=== PATIENT | female | born 1980 | race Hispanic/Latino ===

== ENCOUNTER 2018-12-11 02:04 | Emergency (ER) | payer OTHER ==
--- NOTE | 2018-12-11 02:48 | ED PDOC ---
HPI: CCC, URI, Sore Throat Time Seen by Provider: 12/11/18 02:46 Chief Complaint (Nursing): ENT Problem Chief Complaint (Provider): left ear pain History Per: Patient (38 y/o female here with left ear pain intermittent sharp gradually increasing in frequency today. Denies any fever/chills. No rash noted.) Past Medical History Reviewed: Historical Data, Nursing Documentation, Vital Signs Vital Signs: Last Vital Signs Temp 98.3 F 12/11/18 02:24 Pulse 83 12/11/18 02:24 Resp 16 12/11/18 02:24 BP 107/73 12/11/18 02:24 Pulse Ox 98 12/11/18 02:24 - Family History Family History: States: No Known Family Hx - Home Medications Home Medications: Ambulatory Orders Medication Instructions Recorded Valacyclovir HCl [Valtrex] 1,000 mg PO TID #21 tablet 12/11/18 oxyCODONE/Acetaminophen [Percocet 1 ea PO Q6 PRN #10 tab 12/11/18 5/325 mg Tab] predniSONE [Prednisone] 3 tab PO DAILY #15 tab 12/11/18 - Allergies Allergies/Adverse Reactions: Allergies Allergy/AdvReac Type Severity Reaction Status Date / Time No Known Allergies Allergy Verified 12/11/18 02:25 Review of Systems ROS Statement: Except As Marked, All Systems Reviewed And Found Negative Physical Exam - Reviewed Nursing Documentation Reviewed: Yes Vital Signs Reviewed: Yes - Physical Exam Appears: Positive for: Well, Non-toxic, No Acute Distress Head Exam: Positive for: ATRAUMATIC, NORMAL INSPECTION, NORMOCEPHALIC Skin: Positive for: Normal Color, Warm, DRY Eye Exam: Positive for: EOMI, Normal appearance, PERRL ENT: Positive for: Normal ENT Inspection Neck: Positive for: Normal, Painless ROM Cardiovascular/Chest: Positive for: Regular Rate, Rhythm Respiratory: Positive for: CNT, Normal Breath Sounds Gastrointestinal/Abdominal: Positive for: Normal Exam, Soft Back: Positive for: Normal Inspection Extremity: Positive for: Normal ROM Neurological/Psych: Positive for: Awake, Alert, Normal Tone - Laboratory Results Result Diagrams: 12/11/18 03:05 12/11/18 03:05 - ECG O2 Sat by Pulse Oximetry: 98 - Progress ED Course And Treament: toradol 15 mg iv x 1 dose Medical Decision Making Medical Decision Makin CT Mastoids Findings: No evidence of effusion in the middle ear cavities or mastoid air cells. Unremarkable middle ear ossicles. Unremarkable external auditory canals. Unremarkable internal auditory canals. Impression: Unremarkable exam. Disposition - Clinical Impression Clinical Impression: Neuralgia - Patient ED Disposition Is Patient to be Admitted: No - Disposition Referrals: [facility] [Outside] Disposition: Routine/Home Disposition Time: 04:53 Condition: FAIR Prescriptions: oxyCODONE/Acetaminophen [Percocet 5/325 mg Tab] 1 ea PO Q6 PRN #10 tab PRN Reason: Pain, Severe (8-10) predniSONE [Prednisone] 3 tab PO DAILY #15 tab Valacyclovir HCl [Valtrex] 1,000 mg PO TID #21 tablet Instructions: Shingles (DC) Forms: [facility] ED School/Work Excuse
[2018-12-11 03:15] LABS: BASO % 0.5 % (0.0-2.0); EOS # 0.4 K/uL (0.0-0.7); HEMOGLOBIN 14.1 g/dL (12.0-16.0); LYMPH # 1.4 K/uL (1.0-4.3); LYMPH % 19.3 % (20.0-40.0); MEAN CELL VOLUME 93.7 fl (81.0-99.0); MEAN CORPUSCULAR HEMOGLOBIN 31.8 pg (27.0-31.0); MEAN PLATELET VOLUME 7.9 fl (7.2-11.7); MONO # 0.4 K/uL (0.0-0.8); MONO % 6.4 % (0.0-10.0); NEUT # 4.9 K/uL (1.8-7.0); NEUT % 68.8 % (50.0-75.0); NRBC % 0.1 % (0.0-0.0); RBC 4.44 Mil/uL (3.80-5.20); RED CELL DISTRIBUTION WIDTH 12.5 % (11.5-14.5); WHITE BLOOD COUNT 7.1 K/uL (4.8-10.8)
[2018-12-11 03:29] LABS: ALBUMIN 3.8 g/dL (3.5-5.0); ALT/SGPT 21 U/L (9-52); AST/SGOT 29 U/L (14-36); BLOOD UREA NITROGEN 17 mg/dl (7-17); CALCIUM 9.1 mg/dL (8.4-10.2); GFR NON-AFRICAN AMERICAN > 60
[2018-12-11 05:34] VITALS: BP 116/73; PULSE 77; RESP 15; TEMP 98.2; O2SAT 100
--- NOTE | 2018-12-11 09:41 | CT ---
Date of service: 12/11/2018 PROCEDURE: CT OF THE TEMPORAL BONES WITHOUT CONTRAST HISTORY: Left ear pain COMPARISON: None available. TECHNIQUE: High resolution axial images of the temporal bones were obtained. Coronal and sagittal reformats were generated. Radiation dose: Total exam DLP = 511.62 mGy-cm. This CT exam was performed using one or more of the following dose reduction techniques: Automated exposure control, adjustment of the mA and/or kV according to patient size, and/or use of iterative reconstruction technique. FINDINGS: RIGHT TEMPORAL BONE: RIGHT MIDDLE EAR: Normal. RIGHT INNER EAR: Cochlea: Normal. Semicircular canals: Normal. RIGHT MASTOID AIR CELLS: Normal. RIGHT INTERNAL AUDITORY CANAL: Normal. RIGHT EXTERNAL AUDITORY CANAL: Normal. RIGHT VESTIBULAR AND COCHLEAR AQUEDUCT: Normal. OTHER FINDINGS: None. LEFT TEMPORAL BONE: LEFT MIDDLE EAR: Normal. LEFT INNER EAR: Cochlea: Normal. Semicircular canals: Normal. LEFT MASTOID AIR CELLS: Normal. LEFT INTERNAL AUDITORY CANAL: Normal. LEFT EXTERNAL AUDITORY CANAL: Normal. LEFT VESTIBULAR AND COCHLEAR AQUEDUCTS: Normal. OTHER FINDINGS: None. IMPRESSION: Unremarkable non contrast enhanced CT of the temporal bones. A preliminary report was provided by [employer].
== END 2018-12-11 05:35 | disposition home or self-care (01) ==
LOC: H.ER 02:04
DX: M79.2 Neuralgia and neuritis, unspecified (principal)
CPT/HCPCS: 70480; 80053; 81025; 83735; 85025; 96374; 99283; J1885